=== PATIENT | male | born 1995 | race African-American/Black ===

== ENCOUNTER 2017-06-06 15:27 | Emergency (ER) | payer OTHER ==
[~2017-06-06] VITALS: Ht 180.3 cm; Wt 83.4 kg
[2017-06-06 18:52] VITALS: BP 136/80
== END 2017-06-06 18:53 ==
LOC: EME 15:27
PROC: 0HQFXZZ Repair Right Hand Skin, External Approach (ICD-10-PCS; principal; 2017-06-06)
PROC: 3E0234Z Introduction of Serum, Toxoid and Vaccine into Muscle, Percutaneous Approach (ICD-10-PCS; principal; 2017-06-06)
DX: S61.411A Laceration without foreign body of right hand, initial encounter (principal); W25.XXXA Contact with sharp glass, initial encounter; Y93.89 Activity, other specified; Y92.143 Cell of prison as the place of occurrence of the external cause; Z23 Encounter for immunization
CPT/HCPCS: 73130; 99281; 99283